=== PATIENT | male | born 1955 | race Caucasian/White ===

== ENCOUNTER → 2016-06-11 | Outpatient (CLI) | payer BC | LOC: KOH-I 06-09 15:30 | DX: C83.00 Small cell B-cell lymphoma, unspecified site (principal) | CPT/HCPCS: 70491; 71260; 74177; Q9962 ==

== ENCOUNTER → 2016-06-11 | Outpatient (CLI) | payer BC | LOC: LAB 08:37 | DX: C83.00 Small cell B-cell lymphoma, unspecified site (principal) | CPT/HCPCS: 82565; 84520 ==